=== PATIENT | female | born 1945 | race Caucasian/White ===

== ENCOUNTER 2018-12-07 11:35 | Observation (INO) ==
--- NOTE | 2018-12-07 12:06 | Emergency Department Note ---
Disposition Clinical Impression: Pre-syncope Disposition: Admitted As Inpatient Condition: Good Time of Disposition: 14:17 Dizziness HPI - General Chief Complaint: ED Dizziness Stated Complaint: dizziness Time Seen by Provider: 12/07/18 11:37 Source: patient, EMS Mode of arrival: private vehicle Limitations: no limitations Nursing Notes Reviewed: Yes Vital Signs Reviewed: Yes - History of Present Illness HPI Narrative: 73F that had neck surgery one month ago that was doing home-pt exercises today and suddenly became dizzy. Not on plavix, was taken off for surgery. 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 Patient reports that her dizziness today was different in that she felt presyncopal. Patient thought for sure that she was going to pass out. Patient states she ate breakfast this morning had a piece of toast and some coffee. Patient states that her symptoms began when she was near the end of her PT workout when she was doing some cardio. Patient states she has done these exercises many times before and has never had symptoms like this. Patient reports that she had a stent placed approximately one year ago in July at [facility] and was placed on Plavix after the stent. She reports she was taken off the Plavix right before her surgery 4 months ago. Patient also reports that she had been taking 5 mg of Valium twice a day up until several months ago when her doctor begin weaning her off the Valium. She states that he has been having her take 2.5 mg lasts every month, and that she was recently weaned down to 2.5 mg twice a day. She notes that this change happened approximately 4 days ago. - Related Data Home Medications Medication Instructions Recorded Confirmed Aspirin [Adult Aspirin] 81 mg PO DAILY 08/11/17 12/07/18 diazePAM [Valium] 5 mg PO TID PRN 08/11/17 12/07/18 Cholecalciferol (D-3) [Vitamin D] 1,000 unit PO DAILY 12/07/18 12/07/18 Cyclobenzaprine [Flexeril] 5 mg PO TID PRN 12/07/18 12/07/18 Ezetimibe [Zetia] 10 mg PO DAILY 12/07/18 12/07/18 Latanoprost [Xalatan] 1 drop BOTH EYES HS 12/07/18 12/07/18 Metoprolol Succinate [Toprol Xl] 12.5 mg PO DAILY 12/07/18 12/07/18 Allergies Allergy/AdvReac Type Severity Reaction Status Date / Time alprazolam [From Xanax] Allergy Hives Verified 01/04/18 13:05 hydromorphone [From Dilaudid] AdvReac Nausea Verified 01/04/18 12:51 nitrofurantoin AdvReac Fever Verified 01/04/18 12:51 [From Macrodantin] nitroglycerin AdvReac Joint Pain Verified 12/07/18 11:58 ondansetron AdvReac Headache Verified 01/04/18 12:51 [From Zofran (as hydrochloride)] Review of Systems: In addition to that documented in the HPI above, the additional ROS was obtained: Constitutional: Denies fevers or chills Eyes: Denies vision changes ENMT: Denies sore throat CV: Denies chest pain Resp: Denies SOB GI: Denies vomiting or diarrhea : Denies painful urination MSK: Denies recent trauma Skin: Denies new rashes Neuro: Denies new numbness or tingling or weakness Report new dizziness over her existing chronic vertigo Endocrine: Denies unexpected weight loss Heme: Denies bleeding disorders Past Medical History - Past Medical History Attestation: Yes The following information was validated with the patient. Medical history: Reports: myocardial infarction, other Psychiatric history: Reports: no psych history - Social History Smoking Status: Never smoker Smokeless Tobacco Status: No Alcohol use: Reports: none Drug use: Reports: none Physical Exam General: A&O x 3. No acute distress. Well developed, well nourished. Head: atraumatic, normocephalic. ENT: No conjunctival injection, no scleral icterus. PERRLA. EOMI. Oropharynx non- erythematous. mucous membranes moist. Neuro: No focal deficits, no speech deficit, no facial droop, mentating well. BUE/BLE Str 5/5. Moses UE/LE sensation intact. CN II-XII intact. Cerebellar testing with [id number]-kc-[id number] and jyic-ui-mhcm intact. Pulm: Lungs CTAB A/P. No wheezes, rales, ronchi. Cardio: RRR no m/r/g. Chest not tender to palpation. Abd: Soft, non-distended. Normoactive bowel sounds. Non-tender to palpation. No guarding. Non rigid. Extremities: Radial pulses 2+ moses, dorsalis pedis/posterior tibialis 2+ moses. No LE edema. No cyanosis, clubbing. Skin: warm, dry, intact. No rashes. Psych: Appropriate mood and affect. Answers questions appropriately. Cooperative with exam. - General Limitations: no limitations General appearance: alert, in no apparent distress Course Vital Signs Temperature 97.8 F 12/07/18 11:39 Pulse Rate 101 12/07/18 11:39 Respiratory Rate 18 12/07/18 11:39 Blood Pressure 181/93 12/07/18 11:39 O2 Sat by Pulse Oximetry 100 12/07/18 11:39 Temperature 97.8 F 12/07/18 11:39 Pulse Rate 80 12/07/18 15:54 Respiratory Rate 14 12/07/18 15:54 Blood Pressure 151/96 12/07/18 15:54 O2 Sat by Pulse Oximetry 100 12/07/18 15:54 Oxygen Delivery Oxygen Delivery Room Air Dizziness - MDM Narrative Medical decision making narrative: 73-year-old female that complains of presyncope earlier today while she was doing cardio. Patient has a cardiac history with a myocardial infarction with placement of one stent approximately one year ago. We will obtain cardiac workup. Disposition pending. Patient's cardiac workup did not reveal any acute findings, however given the patient is 73 years old and is complaining of presyncope, this is highly correlated with cardiac issues. Patient was admitted to the hospitalist Dr. Ovalle who agreed to accept the patient to his service. Results of the workup including any imaging and/or labwork was shared with the patient at bedside. Patient was given an opportunity to ask questions at bedside and all of their concerns were addressed. Patient verbalized understanding and agreement with plan of care. Pt remained stable while in the department. - Medical Records Medical records reviewed: Yes I reviewed the patient's medical records. - Lab Data Lab results reviewed: Yes I reviewed the patient's lab results. Result diagrams: 12/07/18 12:00 12/07/18 12:00 Lab Results 12/07/18 12/07/18 12/07/18 Range/Units 12:00 12:00 12:00 WBC 5.0 (4.3-11.1) K/mcL RBC 3.89 (3.82-4.97) M/mcL Hgb 12.2 (11.5-15.4) g/dL Hct 37.4 (35.3-44.9) % MCV 96.1 (83.0-100.0) fL MCH 31.4 (28.0-33.3) pg MCHC 32.6 (31.6-35.5) g/dL RDW 13.0 (11.5-14.5) % Plt Count 220 (140-400) K/mcL MPV 10.0 (9.4-12.4) fL Immature Gran % 0.2 (0-4) % Seg Neutrophils % 58.3 % Lymphocytes % 30.3 % Monocytes % 9.0 % Eosinophils % 1.6 % Basophils % 0.6 % Neutrophils # 2.9 (1.6-8.9) K/mcL Lymphocytes # 1.5 (0.6-4.6) K/mcL Monocytes # 0.5 (0.0-1.3) K/mcL Eosinophils # 0.1 (0.0-0.6) K/mcL Basophils # 0.0 (0.0-0.2) K/mcL PT 11.4 (9.4-12.1) Seconds INR 1.0 D-Dimer 494 (0-500) ng/mLFEU Sodium 141 (136-145) mEq/L Potassium 4.0 (3.5-5.1) mEq/L Chloride 106 (98-107) mEq/L Carbon Dioxide 27 (23-29) mEq/L BUN 17 (8-23) mg/dL Creatinine 0.98 (0.60-1.20) mg/dL Est GFR ( Amer) > 60 (> 60) Est GFR (Non-Af Amer) 56 L (> 60) BUN/Creatinine Ratio 17 (6-26) Glucose 101 (70-105) mg/dL Calculated Osmolality 294 (280-300) Calcium 9.7 (8.6-10.3) mg/dL Magnesium 1.9 (1.6-2.6) mg/dL Troponin I < 0.03 (< 0.04) ng/mL Urine Color (Yellow) Urine Clarity (Clear) Urine pH (5.0-8.0) pH Units Ur Specific [place] (1.010-1.025) Urine Protein (Neg-Trace) mg/dL Urine Glucose (UA) (Normal) mg/dL Urine Ketones (Negative) mg/dL Urine Blood (Negative) Urine Nitrite (Negative) Urine Bilirubin (Negative) Urine Urobilinogen (Normal) mg/dL Ur Leukocyte Esterase (Negative) Ur Culture Indicated? (NO) 12/07/18 Range/Units 13:10 WBC (4.3-11.1) K/mcL RBC (3.82-4.97) M/mcL Hgb (11.5-15.4) g/dL Hct (35.3-44.9) % MCV (83.0-100.0) fL MCH (28.0-33.3) pg MCHC (31.6-35.5) g/dL RDW (11.5-14.5) % Plt Count (140-400) K/mcL MPV (9.4-12.4) fL Immature Gran % (0-4) % Seg Neutrophils % % Lymphocytes % % Monocytes % % Eosinophils % % Basophils % % Neutrophils # (1.6-8.9) K/mcL Lymphocytes # (0.6-4.6) K/mcL Monocytes # (0.0-1.3) K/mcL Eosinophils # (0.0-0.6) K/mcL Basophils # (0.0-0.2) K/mcL PT (9.4-12.1) Seconds INR D-Dimer (0-500) ng/mLFEU Sodium (136-145) mEq/L Potassium (3.5-5.1) mEq/L Chloride (98-107) mEq/L Carbon Dioxide (23-29) mEq/L BUN (8-23) mg/dL Creatinine (0.60-1.20) mg/dL Est GFR ( Amer) (> 60) Est GFR (Non-Af Amer) (> 60) BUN/Creatinine Ratio (6-26) Glucose (70-105) mg/dL Calculated Osmolality (280-300) Calcium (8.6-10.3) mg/dL Magnesium (1.6-2.6) mg/dL Troponin I (< 0.04) ng/mL Urine Color Yellow (Yellow) Urine Clarity Clear (Clear) Urine pH 7.0 (5.0-8.0) pH Units Ur Specific [place] 1.009 L (1.010-1.025) Urine Protein Negative (Neg-Trace) mg/dL Urine Glucose (UA) Normal (Normal) mg/dL Urine Ketones Negative (Negative) mg/dL Urine Blood Negative (Negative) Urine Nitrite Negative (Negative) Urine Bilirubin Negative (Negative) Urine Urobilinogen Normal (Normal) mg/dL Ur Leukocyte Esterase Negative (Negative) Ur Culture Indicated? NO (NO) - Radiology Data Radiology results reviewed: Yes I reviewed the patient's radiology results. Chest X-Ray 12/07/18 12:40 IMPRESSION: No acute cardiopulmonary disease D/ / Billy Chou MD / Billy Chou MD Interpreting Provider: Billy Chou MD Head CT 12/07/18 13:39 IMPRESSION: No acute intracranial abnormality. D/ / Zaheer Moran MD / Zaheer Moran MD Interpreting Provider: Zaheer Moran MD - EKG Data EKG attestation: Yes I reviewed and interpreted this EKG. EKG results narrative: Heart rate 85, rhythm sinus, axis normal. Intervals within normal limits. No ST segment elevation or depression noted. Low voltage noted in precordial leads. Previous EKG dated 07/27/2017 shows no significant changes. Attestation Statement - Attestation Attestation: The history, physical exam, and medical decision making was performed by the medical student either while I was physically present and actively involved or I personally re-performed the exam and medical decision making. I have verified the accuracy of the medical student's documentation with regards to the history, physical exam findings, and medical decision making. I examined this patient and my medical decision-making was reviewed with the Resident Physician. I agree with the documented findings, disposition and treatment plan as described except to the extent set forth below. 73 yo F presents with concerns of lightheadedness. States symptoms started acutely today while doing physical therapy. Had acute onset of lightheadness and near syncope. +hx of ID with one stent. Pt denies f/c/n/v/d, sob, cp, re cent trauma, leg swelling. Pt is decreasing her valium, used to take two 5 mg valium daily and is now taking flexeril and 2.5mg valium daily. No other new medications. no focal neurologic deficit in the ED. finger to nose and heel to isaac intact in the ED. CT and Labs pending. likely admission for evaluation.
[2018-12-07 12:24] LABS: Basophils % 0.6 %; Eosinophils # 0.1 K/mcL (0.0-0.6); Eosinophils % 1.6 %; Hematocrit 37.4 % (35.3-44.9); Hemoglobin 12.2 g/dL (11.5-15.4); Immature Granulocytes % 0.2 % (0-4); Lymphocytes # 1.5 K/mcL (0.6-4.6); Lymphocytes % 30.3 %; Mean Corpuscular HGB Conc 32.6 g/dL (31.6-35.5); Mean Corpuscular Hemoglobin 31.4 pg (28.0-33.3); Mean Corpuscular Volume 96.1 fL (83.0-100.0); Monocytes # 0.5 K/mcL (0.0-1.3); Neutrophils # 2.9 K/mcL (1.6-8.9); Platelet Count 220 K/mcL (140-400); Red Blood Count 3.89 M/mcL (3.82-4.97); Segmented Neutrophils % 58.3 %
[2018-12-07 12:35] LABS: Prothrombin Time 11.4 Seconds (9.4-12.1)
[2018-12-07 12:42] LABS: BUN/Creatinine Ratio 17 (6-26); Blood Urea Nitrogen 17 mg/dL (8-23); Calcium 9.7 mg/dL (8.6-10.3); Carbon Dioxide 27 mEq/L (23-29); Chloride 106 mEq/L (98-107); Glucose 101 mg/dL (70-105); Magnesium 1.9 mg/dL (1.6-2.6); Osmolality,Calculated 294 (280-300); Sodium 141 mEq/L (136-145); Troponin I < 0.03 ng/mL (< 0.04); eGFR For African Americans > 60 (> 60); eGFR For Non-African Americans 56 (> 60)
[2018-12-07 13:18] LABS: Bilirubin,Urine Negative (Negative); Blood,Urine Negative (Negative); Clarity,Urine Clear (Clear); Color,Urine Yellow (Yellow); Glucose,Urine (UA) Normal (Normal); Ketones,Urine Negative (Negative); Leukocyte Esterase,Urine Negative (Negative); Nitrite,Urine Negative (Negative); Protein,Urine Negative (Neg-Trace); Specific Gravity,Urine 1.009 (1.010-1.025); Urobilinogen,Urine Normal (Normal)
[2018-12-07] MEDS ORDERED: Naloxone 0.4 MG/ML INJ IVP PRN (15:05)
[2018-12-07] MEDS ORDERED: *HR* HYDROcodone/Acet 5/325 mg TABLET PO PRN (15:05)
--- NOTE | 2018-12-07 16:06 | Internal Med History&Physical ---
Date of Encounter: 12/07/18 Time of Encounter: 15:20 Internal Medicine - H&P: HPI Chief complaint: Lightheadedness/dizzy Admitted From: Emergency Dept Plans for Post Hospital Care: Home History of present illness: Ms. Villavicencio is a 73 year old female with known past medical history of hypertension, hyperlipidemia, Anxiety on Valium, and cervical spinal stenosis who recently had spinal fusion and currently going through out pt physical therapy, today while she was at physical therapy she felt palpitations, lightheadedness and dizziness. She found to have sinus tachycardia with heart rate in 160's. She denied any CP / SOB. Pt did mention she used to be on Valium 5mg PO BID, just recently her PCP trying to wean her off the Valium slowly, currently she is on 2.5mg PO BID along with Flexaryl. After coming to ER her in 70's and NSR. Past Med Surg Social Fam HX - Past Medical History Medical history: myocardial infarction, other Additional medical history: Stent placed Psychiatric history: no psych history - Past Surgical History Additional surgical history: Neck surgery (08/07). Nerve block to occipital area. - tonsils - tubal ligation - Social History Smoking Status: Never smoker Smokeless Tobacco Status: No Alcohol use: none Drug use: none - Family History Father Living Status: Hx Family Cardiac Disorders: Yes (Mtr Afib at 92 yrs stroke) Hx Family Respiratory Disorders: No Hx Family Cancer: Yes (sister multiple myeloma, grandfather melanoma) Hx Family GI Disorders: No Hx Family Endocrine Disorder: Yes (brother DM) Hx Family Neuromuscular Disorders: No Hx Family Neurologic Disorders: No Hx Family HEENT Disorders: No Hx Family Autoimmune Disorders: No Internal Medicine - H&P: Meds Aspirin [Adult Aspirin] 81 mg PO DAILY 08/11/17 [History] Metoprolol [Lopressor] 12.5 mg PO DAILY MDD 50 08/11/17 [History] diazePAM [Valium] 5 mg PO BID 08/11/17 [History] Cholecalciferol (D-3) [Vitamin D] 1,000 unit PO DAILY 12/07/18 [History] Cyclobenzaprine [Flexeril] 10 mg PO BID 12/07/18 [History] Ezetimibe [Zetia] 5 mg PO DAILY 12/07/18 [History] Allergy/AdvReac Type Severity Reaction Status Date / Time alprazolam [From Xanax] Allergy Hives Verified 01/04/18 13:05 hydromorphone [From Dilaudid] AdvReac Nausea Verified 01/04/18 12:51 nitrofurantoin AdvReac Fever Verified 01/04/18 12:51 [From Macrodantin] nitroglycerin AdvReac Joint Pain Verified 12/07/18 11:58 ondansetron AdvReac Headache Verified 01/04/18 12:51 [From Zofran (as hydrochloride)] All Systems PM: A 10-system review of systems was performed and is negative for pertinent findings except as documented above in the HPI. Review of systems: All the systems are reviewed everything is benign except the systems and sym ptoms I mentioned in the history of present illness - Constitutional Vitals: Temp Pulse Resp BP Pulse Ox 97.8 F 80 14 151/96 100 12/07/18 11:39 12/07/18 15:54 12/07/18 15:54 12/07/18 15:54 12/07/18 15:54 General appearance: Present: cooperative, A&O X 3, no acute distress, answers questions appropriately Exam: Anxiety - Head Head exam: Present: atraumatic, normal inspection - Neck Neck exam general surgery: Present: normal inspection, supple - Respiratory Respiratory exam: Present: decreased breath sounds. Absent: rales, respiratory distress, rhonchi, wheezes - Cardiovascular Cardiovascular exam: Present: RRR, +S1, +S2. Absent: systolic murmur, tachycardia - GI/Abdominal GI/Abdominal exam: Present: normal bowel sounds, soft. Absent: distended, guarding, rebound, rigid, tenderness - Extremities Exam Extremities exam: Present: normal inspection. Absent: calf tenderness, pedal edema, tenderness - Back Exam Back exam: Absent: CVA tenderness (L), CVA tenderness (R) - Neurological Exam Neurological exam: Present: alert, oriented X3, no focal deficits - Psychiatric Psychiatric exam: Present: anxious - Skin Skin exam: Absent: rash Internal Med - H&P Results - Labs CBC & Chem 7: 12/07/18 12:00 12/07/18 12:00 Labs: Short CBC 12/07/18 Range/Units 12:00 WBC 5.0 (4.3-11.1) K/mcL Hgb 12.2 (11.5-15.4) g/dL Hct 37.4 (35.3-44.9) % Plt Count 220 (140-400) K/mcL Neutrophils # 2.9 (1.6-8.9) K/mcL BMP 12/07/18 12:00 Sodium 141 Potassium 4.0 Chloride 106 Carbon Dioxide 27 BUN 17 Creatinine 0.98 Glucose 101 Calcium 9.7 Cardiac Enzymes 12/07/18 Range/Units 12:00 Troponin I < 0.03 (< 0.04) ng/mL Urine 12/07/18 Range/Units 13:10 Urine Color Yellow (Yellow) Urine Clarity Clear (Clear) Urine pH 7.0 (5.0-8.0) pH Units Ur Specific [place] 1.009 L (1.010-1.025) Urine Protein Negative (Neg-Trace) mg/dL Urine Glucose (UA) Normal (Normal) mg/dL - Impressions ITS Impressions Chest X-Ray 12/07/18 12:40 IMPRESSION: No acute cardiopulmonary disease D/ / Billy Chou MD / Billy Chou MD Interpreting Provider: Billy Chou MD Head CT 12/07/18 13:39 IMPRESSION: No acute intracranial abnormality. D/ / Zaheer Moran MD / Zaheer Moran MD Interpreting Provider: Zaheer Moran MD - Assessment and Plan (1) Pre-syncope Current Visit: Yes Status: Acute Assessment and plan: Will place the pt into Tele for observation Pt's Near syncope seems to be more like vasovagal reaction / ortho static however still need to r/o ACS vs Arrhythmia will place the pt on rn cardiac cath check serial troponin so far negative trop will start ASA will get 2 D echo and Carotid Doppler in AM Will check FLP in AM Will check ortho stat vitals Started on IV fluids (2) Dehydration Current Visit: Yes Status: Acute Assessment and plan: She does look dehydrated with dry mucous membranes started her on IV hydration (3) Anxiety Current Visit: Yes Status: Acute Assessment and plan: Her current episode could be due to anxiety attack too for now will continue her Valium at 2.5mg BID Will give Ativan PRN (4) Hypertension Current Visit: Yes Status: Acute Assessment and plan: Stable blood pressure with current home medications continue current home medications Qualifiers: Hypertension type: essential hypertension Qualified Code(s): I10 - Essent ial (primary) hypertension (5) Hyperlipidemia Current Visit: Yes Status: Acute Assessment and plan: Continue home medications will check lipid profile in the morning Qualifiers: Hyperlipidemia type: unspecified Qualified Code(s): E78.5 - Hyperlipidemia, unspecified - Time Spent With Patient Total time spent is greater than 50% in coordination of care (as documented) at patient's floor/unit and/or counseling patient:
[2018-12-07] MEDS ORDERED: *HR* LORazepam 0.5 MG TABLET PO PRN (16:17)
[2018-12-07] MEDS: 0.9 % Sodium Chloride 1,000 ML IVC SCH (17:09)
[2018-12-07] MEDS: Acetaminophen 325 MG TABLET PO PRN (18:36)
[2018-12-07] MEDS: diazePAM 5 MG TABLET PO SCH (19:56)
[2018-12-07] MEDS ORDERED: Latanoprost 2.5 ML BOTTLE BOTH EYES SCH (21:32)
[2018-12-08 00:58] LABS: Chol/HDL Ratio 3.2 (0-4.9)
[2018-12-08] MEDS: 0.9 % Sodium Chloride 1,000 ML IVC SCH (01:55)
--- NOTE | 2018-12-08 06:55 | Electrocardiograph Report ---
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
[2018-12-08 07:46] VITALS: BP 158/76
[2018-12-08] MEDS: Acetaminophen 325 MG TABLET PO PRN (08:06)
[2018-12-08] MEDS ORDERED: Aspirin Enteric Coated 81 MG Tablet PO SCH (09:00)
[2018-12-08] MEDS ORDERED: EZETIMIBE 5 MG PO SCH (09:00)
[2018-12-08] MEDS ORDERED: Metoprolol XL (24 HR) Succ 25 MG TAB.ER.24H PO SCH (09:00)
[2018-12-08] MEDS ORDERED: Cholecalciferol (D-3) 1,000 UNIT (25MCG) TABLET PO SCH (09:00)
[2018-12-08] MEDS: diazePAM 5 MG TABLET PO SCH (09:37)
--- NOTE | 2018-12-08 10:55 | Discharge Summary ---
- NOTES TO OUTPATIENT PROVIDER Notes to Outpatient Provider: f/u with PCP in one week. f/u with Vascular surgery in 2 weeks. Date of Encounter: 12/08/18 Time of Encounter: 10:50 - Discharge Diagnosis (1) Pre-syncope Priority: Primary Status: Acute (2) Dehydration Priority: Primary Status: Acute (3) Anxiety Priority: Primary Status: Acute (4) Hypertension Priority: Secondary Status: Acute Qualifiers: Hypertension type: essential hypertension Qualified Code(s): I10 - Essential (primary) hypertension (5) Hyperlipidemia Priority: Secondary Status: Acute Qualifiers: Hyperlipidemia type: unspecified Qualified Code(s): E78.5 - Hyperlipidemia, unspecified Hospital course: Ms. Villavicencio is a 73 year old female with known past medical history of hypertension, hyperlipidemia, Anxiety on Valium, and cervical spinal stenosis who recently had spinal fusion and currently going through out pt physical therapy, today while she was at physical therapy she felt palpitations, lightheadedness and dizziness. She found to have sinus tachycardia with heart rate in 160's. She denied any CP / SOB. Pt did mention she used to be on Valium 5mg PO BID, just recently her PCP trying to wean her off the Valium slowly, currently she is on 2.5mg PO BID along with Flexaryl. After coming to ER her in 70's and NSR. She was admitted in the hospital and placed her on radiation monitor. Her serial troponin came back as negative. She was started on IV hydration. Her Ortho stat vitals are WNL. Her Echo showed preserved LVEF and moderate diastolic dysfunction. Her carotid Doppler showed nonstenotic plaque bilaterally and 60- 79% stenosis in the left bifurcation. So recommend to follow up with vascular surgery as an outpatient. Her symptoms seems to be due to an anxiety attack. I did recommend her continue valium dose as directed by her PCP. - Time Spent with Patient Total time spent providing and/or coordinating discharge services: - Discharge Medications Prescriptions: Continued Aspirin [Adult Aspirin] 81 mg PO DAILY Cholecalciferol (D-3) [Vitamin D] 1,000 unit PO DAILY Ezetimibe [Zetia] 10 mg PO DAILY Cyclobenzaprine [Flexeril] 5 mg PO TID PRN PRN Reason: MUSCLE SPASMS Metoprolol Succinate [Toprol Xl] 12.5 mg PO DAILY Latanoprost [Xalatan] 1 drop BOTH EYES HS Changed diazePAM [Valium] 2.5 mg PO TID PRN #0 PRN Reason: ANXIETY/MUSCLE SPASM Home Medications: Aspirin [Adult Aspirin] 81 mg PO DAILY 08/11/17 [History] Cholecalciferol (D-3) [Vitamin D] 1,000 unit PO DAILY 12/07/18 [History] Cyclobenzaprine [Flexeril] 5 mg PO TID PRN 12/07/18 [History] Ezetimibe [Zetia] 10 mg PO DAILY 12/07/18 [History] Latanoprost [Xalatan] 1 drop BOTH EYES HS 12/07/18 [History] Metoprolol Succinate [Toprol Xl] 12.5 mg PO DAILY 12/07/18 [History] diazePAM [Valium] 2.5 mg PO TID PRN #0 12/08/18 [Rx] Allergies/Adverse Reactions: Allergy/AdvReac Type Severity Reaction Status Date / Time alprazolam [From Xanax] Allergy Hives Verified 01/04/18 13:05 hydromorphone [From Dilaudid] AdvReac Nausea Verified 01/04/18 12:51 nitrofurantoin AdvReac Fever Verified 01/04/18 12:51 [From Macrodantin] nitroglycerin AdvReac Joint Pain Verified 12/07/18 11:58 ondansetron AdvReac Headache Verified 01/04/18 12:51 [From Zofran (as hydrochloride)] Date of admission: 12/07/18 15:08 Primary care physician: Anup De Dios, DO - Constitutional Vitals: Temp Pulse Resp BP Pulse Ox 97.6 F 68 15 158/76 99 12/08/18 07:45 12/08/18 07:45 12/08/18 07:45 12/08/18 07:45 12/08/18 07:45 General appearance: Present: cooperative, A&O X 3, no acute distress, answers questions appropriately Exam: Gen: Alert, awake, Oriented to time,place and person Chest: Diminished breath sounds B/L, No wheezing, No crackles, No rales Heart: S1S2+ RRR No murmurs Abd: Soft, NT, BS +, No organomegaly Ext: No edema, pulses are palpable, No calf tenderness Neuro : No acute focal neuro deficits noticed Psych: anxious Skin: No rash. - Patient Status Disposition: Home, Self-Care Condition: Good Overall status at discharge: patient is back to baseline - Discharge Instructions Instructions: Syncope (DC) Follow Up With: Anup De Dios DO [Primary Care Provider] - 12/16/18 12:00 pm - Diet and Activity Activity: increase activity as tolerated Diet: low salt diet
--- NOTE | 2018-12-09 10:56 | Electrocardiograph Report ---
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
== END 2018-12-08 11:47 | disposition home or self-care (01) ==
LOC: 3BNU 11:35 → EMEROOARM 11:35 → 3BNU 16:25
PROVIDERS: ADMIT Internal Medicine; ATTEND Internal Medicine